=== PATIENT | female | born 1945 | race Caucasian/White ===

== ENCOUNTER 2017-04-24 17:59 | Outpatient (CLI) | payer MEDICARE, MEDICAID ==
[~2017-04-24] VITALS: Ht 149.9 cm; Wt 55.8 kg
--- NOTE | ~2017-04-24 | OP ---
PATIENT NAME: АНДРЕЙ CHAPMAN MEDICAL RECORD: [id number] :49 LOCATION:D.M2 D.2127 ADMISSION DATE:04/24/17 SURGEON: SHABNAM HOOD MD DATE OF OPERATION: 04/25/2017 PROCEDURE: Left heart catheterization, selective coronary angiography, right femoral artery approach. CATHETERS: A 5-Qatari sheath, 5/4 left and right Morro, 5/4 pig. The procedure was well tolerated. We proceeded immediately to PTCA stenting after procedure finished. FINDINGS: Left ventriculography in 30-degree BOGGS view: Normal wall motion and normal systolic function. CORONARY ANATOMY: LEFT MAIN: Left main is free of disease. LAD: Free of disease in the diagonal system. CIRCUMFLEX: Circumflex has about 80% stenosis at the takeoff of the OM. RIGHT CORONARY ARTERY: Basically subtotalled in its mid portion with a ruptured plaque proximally. IMPRESSION: Plan intervention of the right momentarily, circ at a later date. DESCRIPTION OF PROCEDURE: A 5-Qatari sheath was changed for a 6-Qatari sheath. A hockey stick guide catheter gave good guide catheter support. A 300 cm Whisper wire was placed across the totally occluded right down this portion of vessel. Pre-deployment balloon was a 3.0 x 15 mm [place] up to 12 atmospheres. Next, stent deployed was a 3.0 x 30 mm Huang drug-eluting stent for 14 atmospheres for 45 seconds. Final angiography showed excellent resolution of a subtotal right, no significant residual. RUIZ flow was 3 throughout the procedure. Integrilin was used in the case. Sheath was closed with ExoSeal device. TRANSINT:[id number] Voice Confirmation ID: [id number] DOCUMENT ID: [id number] SHABNAM HOOD MD at 1400 CC: [id number] DICTATION DATE: 04/25/17 1439 DERRICK BUILDER: 04/25/17 1459 DIS IN 04/25/17 [place] [id number] [facility] [place] [address]
--- NOTE | ~2017-04-24 | HEMODYNAMI ---
PATIENT:АНДРЕЙ CHAPMAN MEDICAL RECORD: [id number] : 49 [facility] [id number] ADMISSION DATE: 04/24/17 Generatedon:04/25/201714:33 Patient name: АНДРЕЙ CHAPMAN Patient #: [id number] SSN: DO B: 1945 Date of study: 04/25/2017 Page: Of Hemodynamic Procedure Report Patient Data Patient Demographics Procedure consent was obtained First Name: АНДРЕЙ Gender: Female Last Name: ADELA : 1945 Patient #: [id number] Age: 72 year(s) Race: Unknown Additional ID: [id number] Contact details Address: [address] [place] [address] State: [place] City: [facility] [place] Zip code: [address] Admission Admission Data Admission Date: 04/24/2017 Admission Time: 20:37 Admit Source: Other Room #: 2127 Procedure Procedure Types Cath Procedure Diagnostic Procedure LHC LHC w/Coronaries Sedation Charges Moderate Sedation up to 15 minutes PCI Procedure Coronary Stent Coronary Stent Initial Procedure Description Procedure Date Procedure Date: 04/25/2017 Procedure Start Time: 14:05 Procedure End Time: 14:29 Procedure Staff Name Function Jet Raygoza MD Performing Physician Rashi Rubalcava RT Monitor Damon Herring RT Scrub Luis Shrestha RN Nurse Procedure Data Cath Procedure Fluoroscopy Diagnostic fluoroscopy Total fluoroscopy Time: 5 time: 5 min min Diagnostic fluoroscopy Total fluoroscopy dose: 253 dose: 253 mGy mGy Contrast Material Contrast Material Type Amount (ml) Isovue 300 102 Entry Location Entry Primary Successful Side Size Upsize Upsize Entry Closure Succes sful Closure Location (Fr) 1 (Fr) 2 (Fr) Remarks Device Remarks Femoral Right 5 Fr 6 Fr Exoseal artery Short Estimated blood loss: 10 ml Diagnostic catheters Device Type Used For End Catheter Placement MULTIPACK JL 4.0 5Fr Procedure catheter MULTIPACK 3DRC 5Fr Procedure catheter MULTIPACK Pigtail 5 Fr Procedure catheter Procedure Complications No complications Procedure Medications Medication Administration Route Dosage Oxygen NC 2 l/min Heparin Flush Bag added to field 2 bags (1000units/500ml NS) 0.9% NaCl I.V. 100 ml/hr Fentanyl I.V. 50 mcg Versed I.V. 1 mg Fentanyl I.V. 50 mcg Versed I.V. 1 mg Heparin Bolus I.V. 4000 units Integrilin (Bolus I.V. 5 ml 2mg/ml) Integrilin (Bolus wasted 5 ml 2mg/ml) Plavix P.O. 600 mg Hemodynamics Rest Heart Rate: 62 (bpm) Pressure Samples Time Site Value (mmHg) Purpose Heart Use Rate(bpm) 14:10 LV 140/-6,13 Snapshot 63 14:10 AO 121/63(87) Pullback 73 14:10 LV 119/10,13 Pullback 73 14:14 AO 149/67(98) Snapshot 63 14:20 AO 152/67(100) Snapshot 62 Gradients Valve Time Site 1 Site 2 Mean SEP/DFP Peak To Heart Use (mmHg) (sec/min) Peak Rate (mmHg) (bpm) Aortic 14:10 LV AO 0 9 0 73 119/10,13 121/63(87) Calculations Valve P-P Mean Valve Index Valve Source Name Gradient Area Flow (cm2) Aortic 0 0 0 0 Snapshots Pre Cath Intra NCS Post Cath Vital Signs Time Heart Resp SPO2 etCO2 NIBP (mmHg) Rhythm Pain Sedation Rate (ipm) (%) (mmHg) Status Level (bpm) 13:48:24 64 16 97 35 176/88(150) NSR 0 (11) 10(A) , No pain 13:52:50 62 16 97 39.5 166/86(131) NSR 0 (11) 10(A) , No pain 13:57:10 61 15 97 38 157/82(125) NSR 0 (11) 9(A) , No pain 14:01:28 62 15 96 35 141/76(111) NSR 0 (11) 9(A) , No pain 14:05:46 62 16 96 35.8 133/77(120) NSR 0 (11) 9(A) , No pain 14:10:02 62 15 95 36.5 132/65(103) NSR 0 (11) 9(A) , No pain 14:14:18 63 16 95 33.6 139/72(115) NSR 0 (11) 9(A) , No pain 14:18:36 61 17 95 34.3 139/76(120) NSR 0 (11) 9(A) , No pain 14:22:52 61 18 96 36.5 149/78(126) NSR 0 (11) 9(A) , No pain 14:27:10 63 16 96 34.3 160/87(135) NSR 0 (11) 9(A) , No pain 14:29:07 61 30 96 38 158/87(140) NSR 0 (11) 9(A) , No pain Medications Time Medication Route Dose Verified Delivered Reason Notes Effectiveness by by 13:47:55 Oxygen NC 2 Jet Luis Per physician l/min [facility] Shrestha RN, MD 13:48:03 Heparin Flush added 2 Jet Luis used for Bag to bags [facility] Shrestha RN procedure (1000units/500ml field NS) 13:48:15 0.9% NaCl I.V. 100 Jet Smith Per physician ml/hr [facility] Shrestha RN, MD 13:56:45 Fentanyl I.V. 50 Jet Peñay for sedation [facility] Shrestha RN, MD 13:56:52 Versed I.V. 1 mg Jet Smith for sedation [facility] Shrestha RN, MD 13:59:18 Fentanyl I.V. 50 Jet Peñay for sedation [facility] Rem[facility] Shrestha RN, MD 13:59:24 Versed I.V. 1 mg Jet Smith for sedation [facility] Shrestha RN, MD 14:12:37 Heparin Bolus I.V. 4000 [address] for units [facility] Shrestha RN anticoagulation 14:12:57 Integrilin I.V. 5 ml Jet Smith for (Bolus 2mg/ml) [facility] Shrestha RN antiplatelet therapy 14:14:24 Integrilin wasted 5 ml Jet Smith for (Bolus 2mg/ml) [facility] Shrestha RN antiplatelet therapy 14:28:04 Plavix P.O. 600 Jet Smith for mg [facility] Shrestha RN antiplatelet therapy Procedure Log Time Note 13:25:11 Informed consent obtained and on chart 13:25:15 Admit Source: Other 13:25:43 Diagnostic Cath status Elective 13:25:46 Rashi Rubalcava RT(R) sent for patient. Start room use. 13:25:46 Time tracking: Regular hours 13:25:50 Plan of Care:Hemodynamics will remain stable., Cardiac rhythm will remain stable., Comfort level will be maintained., Respiratory function will remain adequate., Patient/ family verbilizes understanding of procedure., Procedure tolerated without complication., Recovers from procedure without complications.. 13:26:19 H&P Date Dictated: 04/24/2017 Within 30 days and on chart.. 13:39:43 Patient received from PCU to CCL 3 Alert and oriented. Tansferred to table in Supine position. 13:39:44 Warm blankets applied, and charles hugger turned on for patient comfort. 13:39:45 Correct patient and procedure confirmed by team. 13:39:47 ECG and BP/O2 sat monitors applied to patient. 13:46:12 Vital chart was started 13:47:55 Oxygen 2 l/min NC was administered by Luis Shrestha RN; Per physician; 13:48:03 Heparin Flush Bag (1000units/500ml NS) 2 bags added to field was administered by Luis Shrestha RN; used for procedure; 13:48:15 0.9% NaCl 100 ml/hr I.V. was administered by Luis Shrestha RN; Per physician; 13:49:11 Baseline sample Acquired. 13:49:35 Rhythm: sinus rhythm 13:49:37 Full Disclosure recording started 13:49:38 Pre-procedure instructions explained to patient. 13:49:39 Pre-op teaching completed and patient verbalized understanding. 13:50:59 Family in patients room. 13:51:00 Patient NPO since Midnight. 13:51:02 Is the patient allergic to Iodine/contrast media? No. 13:54:39 Is patient on blood thinner?No 13:54:40 Patient diabetic? Yes. 13:54:41 If diabetic: On Metformin? Yes 13:54:43 If on Metformin: Last Dose? 04/24/2017 13:54:47 Patient not . Patient is over age 55. 13:54:49 Previous problem with sedation/anesthesia? No ? 13:54:52 Snore? Yes 13:54:53 Sleep apnea? No 13:54:55 Deviated septum? No 13:54:55 Opens mouth fully? Yes 13:54:56 Sticks out tongue? Yes 13:54:59 Airway obstruction? Yes COPD 13:55:04 Dentures? Yes IN 13:55:08 Pre procedure: right dorsailis pedis pulse 1+ Palpable, but thready & weak; easily obliterated 13:55:43 Going groin due to pt's height of 4'11'' 13:55:46 Patient pain scale 0/10 ?. 13:55:55 IV patent on arrival in right forearm with 0.9% NaCl at O. 13:55:57 Lab results completed and on chart. 13:56:00 Right groin area was prepped with chlora-prep and draped in sterile fashion 13:56:01 Alarms reviewed by R. N. 13:56:02 Sharps counted by scrub and verified by R.N. 13:56:04 --------ALL STOP TIME OUT------ 13:56:04 Final Timeout: patient, procedure, and site verified with staff and physician. All members of the team are in agreement. 13:56:06 Right groin site verified by team. 13:56:12 Physical assessment completed. ASA score P 2 - A patient with mild systemic disease as per Jet Raygoza MD. 13:56:14 Sedation plan: IV Moderate Sedation Medication:Versed, Fentanyl 13:56:45 Fentanyl 50 mcg I.V. was administered by Luis Shrestha RN; for sedation; 13:56:52 Versed 1 mg I.V. was administered by Luis Shrestha RN; for sedation; 13:59:18 Fentanyl 50 mcg I.V. was administered by Luis Shrestha RN; for sedation; 13:59:24 Versed 1 mg I.V. was administered by Luis Shrestha RN; for sedation; 14:03:09 Zero performed for pressure channel P1 14:04:57 Use device set Femoral Dx 14:04:58 Tegaderm 4 x 4 (1626W) opened to sterile field. 14:04:59 ACIST Manifold (22986) opened to sterile field. 14:05:00 ACIST Hand Control (01899) opened to sterile field. 14:05:02 ACIST Syringe (66457) opened to sterile field. 14:05:02 Bag Decanter (2002S) opened to sterile field. 14:05:02 Medline Cath Pack ([id number]) opened to sterile field. 14:05:03 SHEATH 5FR [place] (NQY217) opened to sterile field. 14:05:03 DIAGNOSTIC WIRE .035 260cm J wire (730152) opened to sterile field. 14:05:05 DIAGNOSTIC Multipack 5Fr catheter set (TU2106) opened to sterile field. 14:05:06 PERCUTANEOUS ENTRY 19GA needle opened to sterile field. 14:05:10 Procedure started. 14:05:13 Local anesthetic to right femoral artery with Lidocaine 2% by Jet Raygoza MD.INITIAL ACCESS ONLY 14:06:14 A 5 Fr sheath was inserted into the Right Femoral artery 14:06:23 A MULTIPACK JL 4.0 5Fr catheter was advanced over the wire and used for Procedure. 14:07:25 LCA angiography performed. 14:07:40 Catheter removed. 14:07:48 A MULTIPACK 3DRC 5Fr catheter was advanced over the wire and used for Procedure. 14:08:49 RCA angiography performed. 14:08:52 Catheter removed. 14:09:05 A MULTIPACK Pigtail 5 Fr catheter was advanced over the wire and used for Procedure. 14:09:40 Use device set SANA PCI 14:10:04 SHEATH 6FR [place] (MIP840) opened to sterile field. 14:10:06 INFLATOR Merit BasixCompak (SR5147) opened to sterile field. 14:10:10 WHISPER 300cm guide wire ([id number]) opened to sterile field. 14:10:15 LV angiography performed. 14:10:16 LV gram done using BOGGS 14:10:24 LV hemodynamics recorded. 14:10:42 EF : 55 % 14:10:45 Injector settings: Ml/sec: 10, Volume: 20, 14:10:47 Catheter removed. 14:10:51 GUIDE 6FR HS I catheter (LA6HSI) opened to sterile field. 14:11:45 Sheath upsized to a 6 Fr Short. 14:12:37 Heparin Bolus 4000 units I.V. was administered by Luis Shrestha RN; for anticoagulation; 14:12:48 6 Fr HS 1 guide catheter was inserted over the wire 14:12:57 Integrilin (Bolus 2mg/ml) 5 ml I.V. was administered by Luis Shrestha RN; for antiplatelet therapy; 14:12:58 Study PCI Site: [place] mRCA has 95% stenosis. 14:13:04 ACC Pre-intervention RUZI Flow is 3. 14:14:15 Whisper wire advanced. 14:14:24 Integrilin (Bolus 2mg/ml) 5 ml wasted was administered by Luis Shrestha RN; for antiplatelet therapy; 14:15:49 Wire advanced across lesion. 14:18:16 Inflation number: 1 A EUPHORA 3.0 x 15 Balloon ([id number]) was prepped and advanced across the Mid RCA, then inflated to 12 DAYDAY for 0:30 (min:sec). 14:20:13 Balloon removed over the wire. 14:23:28 Inflation Number: 2 A CHRISTY OTW 3.0 x 30 stent ([id number]) was prepped and advanced across the Mid RCA. The stent was deployed at 16 DAYDAY for 0:45 (min:sec). 14:23:46 EXOSEAL 6Fr (EX600) opened to sterile field. 14:24:02 Stent catheter was removed intact over wire. 14:24:03 Wire removed. 14:24:03 Guide catheter removed. 14:24:05 ACC Post-intervention RUIZ Flow is 3. 14:24:14 Sheath removed intact; hemostasis achieved with Exoseal to the Right Femoral artery. 14:24:25 Procedure ended.(Physican Out) 14:24:41 Fluoroscopy time 05.00 minutes. 14:24:45 Fluoroscopy dose: 253 mGy 14:24:45 Flurop Dose total: 253 14:24:49 Contrast amount:Isovue 300 102ml. 14:24:54 Sharps counted by scrub and verified by R.N. 14:24:55 Insertion/operative site no bleeding no hematoma. 14:27:03 Post-op/insertion site Right Femoral artery dressed using a 4 x 4 and Tegaderm. 14:27:06 Post Procedure Pulses reassessed and unchanged 14:27:08 Post-procedure physical assessment completed. ASA score P 2 - A patient with mild systemic disease as per Jet Raygoza MD. 14:27:10 Post procedure rhythm: unchanged. 14:27:12 Estimated blood loss: 10 ml 14:27:13 Post procedure instruction explained to patient.Patient verbalizes understanding. 14:27:14 Patient needs reinforcement of post procedure teaching. 14:27:29 Procedure type changed to Cath procedure, Diagnostic procedure, LHC, LHC w/Coronaries, Sedation Charges, Moderate Sedation up to 15 minutes, PCI procedure, Coronary Stent, Coronary Stent Initial 14:27:31 Procedure and supply charges have been captured, reviewed, submitted and are correct. 14:27:33 Procedure Complication : No complications 14:27:55 Vital chart was stopped 14::55 See physician's report for complete and final results. 14:27:56 Report given to PCU. 14:27:59 Patient transfered to PCU with Bed. 14:28:04 Plavix 600 mg P.O. was administered by Luis Shrestha RN; for antiplatelet therapy; 14:29:41 Procedure ended. 14:29:41 Full Disclosure recording stopped Intervention Summary Intervention Notes Time ActionType Lesion and Equipment Action# Pressure Duration Attributes Used 14:18:16 Inflate Mid RCA EUPHORA 3.0 x 1 12 00:30 balloon 15 Balloon ([id number]) 14:23:28 Place stent Mid RCA CHRISTY OTW 3.0 2 16 00:45 x 30 stent ([id number]) Device Usage Item Name Manufacture Quantity Catalog Hospital Part Current Mini mal Lot# / Number Charge Number Stock Stock Serial# Code Tegaderm 4 x 3M 1 1626W 348753 [id number] [id number] 5 4 (1626W) ACIST Acist 1 32265 317364 768504 677755 5 Manifold Medical (74556) Systems Inc ACIST Hand Acist 1 55690 354760 099537 980377 5 Control Medical (67330) Systems Inc ACIST Syringe Acist 1 95899 704681 424124 000219 20 (77665) Medical Systems Inc Bag Decanter Microtek 1 2001S 305257 89225 288044 5 (2001S) Medical Inc. Medline Cath Cardinal 1 [id number] 445175 45764 749279 5 Pack Health ([id number]) SHEATH 5FR Terumo 1 SVC510 937627 671057 144761 40 [place] (RTP532) DIAGNOSTIC [facility] 1 933313 910599 935395 991454 30 WIRE .035 260cm J wire (455134) DIAGNOSTIC Cardinal 1 QF7797 625342 96622 402157 30 Multipack 5Fr Health catheter set (LO9847) PERCUTANEOUS Cook Medical 1 H94060 349004 894498 5 ENTRY 19GA needle MULTIPACK JL Cardinal 1 304662 5 4.0 5Fr Health catheter MULTIPACK Cardinal 1 104186 5 3DRC 5Fr Health catheter MULTIPACK Cardinal 1 447100 5 Pigtail 5 Fr Health catheter SHEATH 6FR Terumo 1 YRX906 431951 732264 433122 40 [place] (QSM462) INFLATOR [facility] 1 ML2682 145908 905001 228610 15 [facility] Medical BasixCompak (QR7599) WHISPER 300cm El 1 [id number] 080908 205363 409296 5 guide wire Vascular ([id number]) GUIDE 6FR HS Medtronic 1 LA6HSI 598310 92346 474849 1 I catheter (LA6HSI) EUPHORA 3.0 x Medtronic 1 [id number] 725441 814907 545145 5 [id number] 15 Balloon ([id number]) CHRISTY OTW 3.0 Medtronic 1 [id number] 509775 1591320 173583 5 [id number] x 30 stent ([id number]) EXOSEAL 6Fr Cardinal 1 EX600 804050 199990 789974 10 (EX600) Health Signature Audit [place] Stage Time Signature Unsigned Intra-Procedure 04/25/2017 Rashi Rubalcava 2:33:06 PM RT(R) Signatures Monitor : Rashi Rubalcava RT Signature : Date : Time : [facility] [address] [place] [address]
[2017-04-24 18:48] LABS: BASOPHILS 1.1 % (0-2); EOSINOPHILS 3.1 % (0-7); HEMATOCRIT 42.4 % (36.0-48.0); HEMOGLOBIN 13.8 g/dL (12-16); IMMATURE GRANULOCYTES 0.1 % (0-5); LYMPHOCYTES 23.1 % (15-50); MCH 29.5 pg (26.0-34.0); MCHC 32.5 g/dL (31.0-37.0); MCV 90.6 fL (80.0-100.0); MEAN PLATELET VOLUME 9.7 fL (7.4-10.4); MONOCYTES 7.4 % (2-11); NEUTROPHILS 65.2 % (40-80); PLATELET COUNT 491 10x3/uL (130-400); RBC 4.68 10x6/uL (4.00-5.40); RDW 13.9 % (11.5-14.5); WBC 8.3 10x3/uL (4.8-10.8)
[2017-04-24 19:40] LABS: ALBUMIN 3.4 g/dL (3.4-5.0); ALKALINE PHOSPHATASE 54 U/L (46-116); ALT (SGPT) 17 U/L (10-68); CALC OSMOLALITY 290 mosm/kg (275-300); CALCIUM 9.2 mg/dL (8.5-10.1); CARBON DIOXIDE 29.1 mmol/L (21.0-32.0); CHLORIDE - SERUM 103 mmol/L (98-107); CREATININE - SERUM 1.2 mg/dL (0.6-1.3); GLUCOSE 129 mg/dL (74-106); PROTEIN - SERUM 7.5 g/dL (6.4-8.2); SODIUM 142 mmol/L (136-145); UREA NITROGEN 29 mg/dL (7-18); eGFR NON AFRICAN AMERICAN 47 mL/min (90-120)
[2017-04-24 19:48] LABS: CHOL - HDL RATIO 3.4 ratio (2.3-4.1); CHOLESTEROL, TOTAL 167 mg/dL (0-200); CKMB 2.2 U/L (0.0-3.6); CREATINE KINASE 56 UL (21-215); HDL CHOLESTEROL 49 mg/dL (32-96); LDL CHOLESTEROL 80 mg/dL (0-100); LDL-HDL RATIO 1.6 ratio (1.5-3.5); PRO BNP 338 pg/mL (0-125); TRIGLYCERIDE 191 mg/dL (30-200)
[2017-04-24 19:54] LABS: TROPONIN-I 0.071 ng/mL (0.000-0.060)
[2017-04-25 00:29] VITALS: BP 173/83; BMI 24.9
[2017-04-25] MEDS ORDERED: NORVASC10 MG PO (03:38)
[2017-04-25] MEDS ORDERED: BUSPAR5 MG PO (03:39)
[2017-04-25] MEDS ORDERED: FEXOFENADINE H180 MG PO (03:40)
[2017-04-25] MEDS ORDERED: FENOFIBRATE160 MG PO (03:40)
[2017-04-25] MEDS ORDERED: VOLTAREN25 MG PO (03:40)
[2017-04-25] MEDS ORDERED: GLUCOPHAGE500 MG PO (03:41)
[2017-04-25] MEDS ORDERED: HYDRALAZINE HCL25 MG PO (03:41)
[2017-04-25] MEDS ORDERED: PRAVACHOL40 MG PO (03:42)
[2017-04-25] MEDS ORDERED: PROZAC40 MG PO (03:42)
[2017-04-25 04:00] VITALS: BP 173/88
[2017-04-25 08:22] LABS: BASOPHILS 1.1 % (0-2); EOSINOPHILS 3.5 % (0-7); HEMOGLOBIN 12.7 g/dL (12-16); MCH 29.1 pg (26.0-34.0); MCHC 31.8 g/dL (31.0-37.0); MCV 91.5 fL (80.0-100.0); MEAN PLATELET VOLUME 9.6 fL (7.4-10.4); MONOCYTES 8.2 % (2-11); NEUTROPHILS 57.2 % (40-80); PLATELET COUNT 471 10x3/uL (130-400); RBC 4.37 10x6/uL (4.00-5.40); RDW 13.8 % (11.5-14.5); WBC 7.5 10x3/uL (4.8-10.8)
[2017-04-25 08:27] LABS: CALCIUM 9.4 mg/dL (8.5-10.1); CARBON DIOXIDE 25.2 mmol/L (21.0-32.0); POTASSIUM - SERUM 3.2 mmol/L (3.5-5.1)
[2017-04-25 09:00] VITALS: Ht 149.9 cm; Wt 55.8 kg
[2017-04-25 09:21] VITALS: BP 150/75
[2017-04-25 13:01] VITALS: BP 158/74
[2017-04-25] MEDS ORDERED: PLAVIX75 MG PO (15:26)
[2017-04-25] MEDS ORDERED: ASPIRIN81 MG PO (15:26)
[2017-04-25 17:36] VITALS: BP 168/97
== END 2017-04-25 18:13 | disposition home or self-care (01) ==
LOC: OBSVTIME → D.ER 17:59 → D.OPS 17:59 → D.ER 20:37 → D.M2 20:37 → D.EDHOLD 20:37 → OBSVTIME 20:43 → D.M2 22:10 → D.EDHOLD 22:10 → EDSTATUS 04-25 14:00 → D.M2 04-25 18:13 → D.OPS 04-25 18:13 → D.M2 04-25 18:13
PROVIDERS: Family Medicine; Internal Medicine Cardiovascular Disease
DX: I20.0 Unstable angina (principal); F17.200 Nicotine dependence, unspecified, uncomplicated; I10 Essential (primary) hypertension; Z01.812 Encounter for preprocedural laboratory examination
CPT/HCPCS: 93458; C9600